=== PATIENT | male | born 1945 | race Caucasian/White ===

== ENCOUNTER 2020-04-30 14:30 | Outpatient (CLI) | payer MEDICARE, SELFPAY ==
--- NOTE | ~2020-04-30 | US_ITS ---
EXAMINATION: US carotid duplex BI DATE: 04/30/2020 15:12 INDICATION: Carotid stenosis TECHNIQUE: Grayscale, color Doppler, and pulsed Doppler images of the cervical carotid arteries were obtained. The degree of vessel stenosis is placed in one of the following categories: normal, <50%, 5 0-69%, >=70% but less than near-occlusion, near-occlusion, or total occlusion. Note that percent sten osis relative to normal distal artery lumen diameter is indirectly measured from velocity measurement s as described by Fredi, et al. Radiology 2003; 229:[id number]. Notes: Normal: Peak systolic velocity <125 centimeters/sec and no plaque <50%. Peak systolic velocity <125 ( EDV <40; ICA/CCA PSV ratio <2.0; used these factors only a tandem lesions or low cardiac output or co ntralateral disease) 50-69 %: PSV 125-230 (EDV 40-100; ratio 2-4) >= 70% but less than near occlusion: PSV greater than 230 (EDV > 100; ratio> 4.0) Near Occlusion: PSV that is variable; markedly narrowed lumen Occlusion: Absent flow on color/spectral Doppler and no lumen on judd scale. COMPARISON: None. FINDINGS: RIGHT: The right common carotid artery (CCA) peak systolic velocity (PSV) is 99 cm/s. The right internal car otid artery (ICA) PSV is 108 cm/s. The right ICA end-diastolic velocity (EDV) is 42 cm/s. The right I CA/CCA PSV ratio is 1.1. The external carotid artery (ECA) PSV is 98 cm/s. There is antegrade flow in the right vertebral artery. LEFT: The left CCA PSV is 130 cm/s. The left ICA PSV is 114 cm/s. The left ICA EDV is 31 cm/s. The left ICA /CCA PSV ratio is 0.9. The ECA PSV is 118 cm/s. There is antegrade flow in the left vertebral artery . IMPRESSION: 1. Less than 50% stenosis in the right internal carotid artery by sonographic criteria. 2. Less than 50% stenosis in the left internal carotid artery by sonographic criteria. Reviewed, dictated and finalized at location B. IMPRESSION: 1. Less than 50% stenosis in the right internal carotid artery by sonographic renny beckman. 2. Less than 50% stenosis in the left internal carotid artery by sonographic antonella laguna.
== END 2020-04-30 14:31 | disposition home or self-care (01) ==
LOC: ANHIMG 14:40
PROVIDERS: PCP Internal Medicine; Visit Provider Psychiatry & Neurology Neurology
DX: I65.23 Occlusion and stenosis of bilateral carotid arteries (principal)
CPT/HCPCS: 93880

== ENCOUNTER 2020-06-12 12:42 | Outpatient (CLI) | payer MEDICARE, SELFPAY ==
--- NOTE | ~2020-06-12 | US_ITS ---
EXAMINATION: US renal BI DATE: 06/12/2020 13:14 INDICATION: Chronic kidney disease. TECHNIQUE: Multiple ultrasound grayscale images of the kidneys were obtained. COMPARISON: None. FINDINGS: The right kidney measures 9.7 x 4.5 x 4.6 cm. The left kidney measures 9.5 x 6.1 x 4.2 cm. The kidney s demonstrate normal parenchymal echogenicity. There is a 1.8 cm hypoechoic mass in right kidney. The re is a 4.0 cm hypoechoic mass in left kidney. There is no hydronephrosis. The bladder is normal. IMPRESSION: 1. Normal kidney sizes. No hydronephrosis. 2. Bilateral kidney masses, which may be hemorrhagic cysts or less likely neoplasms. Abdomen CT witho ut and with contrast is recommended. Reviewed, dictated and finalized at location A. IMPRESSION: 1. Normal kidney sizes. No hydronephrosis. 2. Bilateral kidney masses, which may be hemorrhagic cysts or less likely neopl asms. Abdomen CT without and with contrast is recommended.
== END 2020-06-12 12:43 | disposition home or self-care (01) ==
PROVIDERS: PCP Internal Medicine
DX: D64.9 Anemia, unspecified (principal); E78.5 Hyperlipidemia, unspecified; N18.30 Chronic kidney disease, stage 3 unspecified; G40.909 Epilepsy, unspecified, not intractable, without status epilepticus; F41.9 Anxiety disorder, unspecified; N28.1 Cyst of kidney, acquired
CPT/HCPCS: 76775

== ENCOUNTER 2020-08-18 09:03 | Outpatient (CLI) | payer MEDICARE, SELFPAY ==
--- NOTE | ~2020-08-18 | MR_ITS ---
EXAMINATION: MR abdomen wo/w con DATE: 08/18/2020 10:12 INDICATION: Kidney mass. TECHNIQUE: Magnetic resonance imaging (MRI) of the abdomen was performed without and with 17 mL Multi Anu intravenous contrast. Sequences included coronal T2-weighted FS FSE, coronal and axial FIESTA F S, coronal LAVA-flex, axial LAVA, axial T2-weighted FSE, axial T1-weighted dual-echo FSPGR, axial STI R FSE, and axial DWI. Postcontrast sequences included coronal LAVA-flex and a time course of axial LA VA. COMPARISON: Ultrasound 06/12/2020 FINDINGS: The liver and spleen are normal. The gallbladder is absent. The pancreas and adrenal glands are jose l. There are cysts in the kidneys measuring up to 4.4 cm on the left. There are no dilated loops of b owel. There are no pathologically enlarged lymph nodes. There is no free intraperitoneal fluid. The b ladder is distended. IMPRESSION: 1. Benign cysts in the kidneys. Reviewed, dictated and finalized at location A. ND OPERATOR
[2020-08-18 09:40] LABS: Estimated Glomerular Filt Rate 59
== END 2020-08-18 09:04 | disposition home or self-care (01) ==
LOC: ANHIMG 09:08
PROVIDERS: PCP Internal Medicine; Visit Provider Urology
DX: N28.89 Other specified disorders of kidney and ureter (principal); N28.1 Cyst of kidney, acquired
CPT/HCPCS: 74183; A9577

== ENCOUNTER 2022-07-15 01:33 | Day surgery (SDC) | payer MEDICARE, SELFPAY ==
[2022-05-03 14:52] VITALS: BMI 25.8
--- NOTE | 2022-07-14 15:16 | PM.HPGS ---
History of Present Illness History of Present Illness Consent: Risks, benefits, and alternatives have been discussed and questions answered. Patient agrees to proceed with procedure. Chief complaint: hx of colon polyps Narrative: Andi Patterson is a 76 year old male Referred for colon cancer screening. He has a history of polyps. Review of Systems Review of Systems: All systems reviewed & are unremarkable except as noted in HPI and below PMFSH Past Medical History Medical History Anxiety Hyperlipidemia Seizure disorder Social History Social History Smoking status: Never smoker Substance use type: does not use Living arrangements: with family Spiritual care concerns: No Meds Home Medications and Allergies Home Medications Medication Instructions Recorded Confirmed Type Men's 50 Plus Multivitamin 1 tablet PO DAILY 05/03/22 07/15/22 History alprazolam 0.25 mg tablet 0.25 mg PO BID PRN Anxiety 05/03/22 07/15/22 History cholecalciferol (vitamin D3) 125 125 mcg PO DAILY 05/03/22 07/15/22 History mcg (5,000 unit) tablet (Vitamin D3) phenytoin sodium extended 100 mg 100 mg PO DAILY 05/03/22 07/15/22 History capsule rosuvastatin 10 mg tablet 10 mg PO DAILY 05/03/22 07/15/22 History Allergies Allergy/AdvReac Type Severity Reaction Status Date / Time No Known Allergies Allergy Verified 07/15/22 08:53 Exam Const: General: alert Orientation/consciousness: patient oriented x3 Resp: Auscultation: clear to auscultation bilaterally Cardio: Rhythm: regular rhythm GI: GI Palp: Yes Soft to palpation and No Tenderness to palpation present (GI) Neuro: General: patient oriented x3 Assessment and Plan Assessment and plan (1) Colon cancer screening: Code(s): Z12.11 - Encounter for screening for malignant neoplasm of colon Status: Acute Assessment and Plan: Colonoscopy with possible biopsy or polypectomy or cautery or injection of substances.
[2022-07-15 08:54] VITALS: BP 132/75; PULSE 73; RESP 20; TEMP 36.6; O2SAT 97; BMI 24.3
[2022-07-15] MEDS: LACTATED RINGERS 1,000 ML 150 ML IV CONT (08:57)
--- NOTE | 2022-07-15 09:19 | P.PNAN_ITS ---
Anes - Initial Pre Proc Eval Procedure: Operation Date: 07/15/22 09:30 Proposed Procedures p Screening Colonoscopy - Charanjit Griffith MD Date/Time: 07/15/22 09:19 Surgeon: Charanjit Griffith MD Pre Op Diagnosis: hx of colon polyps Patient Data Age: 76 Gender: M Height: 1.83 m Weight: 81.2 kg Last Vital Signs Temp 36.6 C 07/15/22 08:54 Pulse 73 07/15/22 08:54 Resp 20 07/15/22 08:54 BP 132/75 07/15/22 08:54 Pulse Ox 97 07/15/22 08:54 O2 Del Method Room Air 07/15/22 08:54 Allergies Allergy/AdvReac Type Severity Reaction Status Date / Time No Known Allergies Allergy Verified 07/15/22 08:53 Home Medications Medication Instructions Recorded Confirmed Type Men's 50 Plus Multivitamin 1 tablet PO DAILY 05/03/22 07/15/22 History alprazolam 0.25 mg tablet 0.25 mg PO BID PRN Anxiety 05/03/22 07/15/22 History cholecalciferol (vitamin D3) 125 125 mcg PO DAILY 05/03/22 07/15/22 History mcg (5,000 unit) tablet (Vitamin D3) phenytoin sodium extended 100 mg 100 mg PO DAILY 05/03/22 07/15/22 History capsule rosuvastatin 10 mg tablet 10 mg PO DAILY 05/03/22 07/15/22 History Patient hx anesthesia problems: none Family hx anesthesia problems: none Results Review: All pre-operative results and documents have been reviewed as part of the pre- operative evaluation. [facility] Past Medical History Medical History (Updated 07/15/22 @ 09:19 by Yonatan Diego MD) Anxiety Hyperlipidemia Seizure disorder Social History Social History Smoking status: Never smoker Substance use type: does not use Living arrangements: with family Spiritual care concerns: No Anes - Eval Final PreProcedure Day of Procedure 07/15/22 09:19 Patient weight: normal Heart: regular rate and rhythm Lungs: clear to auscultation Airway: Mallampati scale class II Neurological: other (alert) Last oral intake: >/= 8 hours ASA classification: III Emergent: no Anesthetic plan: proceed Anesthesia type and monitoring: general GIVS and standard monitoring Results Review: All pre-operative results and documents have been reviewed as part of the pre- operative evaluation. Informed Consent: The patient's anesthetic plan and its attendant risks and benefits were discussed with the patient/family/POA. Questions were solicited and answers provided to the satisfaction of the patient/family/POA.
[2022-07-15] MEDS: SIMETHICONE ORAL SUSPENSION 20 MG/0.3 ML 30 ML BOTTLE 0.6 ML IRRIGATION (09:58)
[2022-07-15 10:06] VITALS: BP 91/57; PULSE 86; RESP 18; O2SAT 96
[2022-07-15 10:16] VITALS: BP 112/63; PULSE 78; RESP 20; O2SAT 99
[2022-07-15 10:26] VITALS: BP 124/81; PULSE 70; RESP 23; O2SAT 99
== END 2022-07-15 10:35 | disposition home or self-care (01) ==
PROVIDERS: PCP Internal Medicine; Visit Provider Internal Medicine Gastroenterology
PROC: 0DJD8ZZ Inspection of Lower Intestinal Tract, Via Natural or Artificial Opening Endoscopic (ICD-10-PCS; CPT 45378; principal; 2022-07-15 09:30)
DX: Z12.11 Encounter for screening for malignant neoplasm of colon (principal); Z86.010 Personal history of colon polyps; E78.5 Hyperlipidemia, unspecified; F41.9 Anxiety disorder, unspecified; G40.909 Epilepsy, unspecified, not intractable, without status epilepticus
CPT/HCPCS: G0105; J2704; J7120

== ENCOUNTER → 2023-06-07 09:05 | Outpatient (CLI) | payer MEDICARE, SELFPAY ==
--- NOTE | ~2023-06-07 | US_ITS ---
US renal BI 06/07/2023 09:38 Procedure: Realtime transabdominal ultrasound of the kidneys and bladder. Indication: Bilateral renal cysts Comparison: Ultrasound dated 06/12/2020 Findings: Renal echotexture is normal bilaterally without hydronephrosis, contour deforming mass or r enal calculus. There are bilateral renal cysts measuring 2.2 cm on the right and 5.6 cm on the left T he right kidney measures 9.5 cm and left kidney measures 10.4 cm. Bladder within normal limits. Impression: 1: Bilateral renal cysts. Reviewed, dictated and finalized at location L. Impression: 1: Bilateral renal cysts.
== END ==
DX: N28.1 Cyst of kidney, acquired (principal)
CPT/HCPCS: 76775